=== PATIENT | male | born 1950 | race African-American/Black ===

== ENCOUNTER 2016-07-24 21:41 | Emergency (ER) | payer MEDICARE, OTHER ==
[~2016-07-24] VITALS: Ht 180.3 cm; Wt 79.4 kg
--- NOTE | 2016-07-24 22:03 | PHYS DOC ---
Past Medical History Past Medical History: CAD, CHF, Diabetes-Type II, Hypertension Past Surgical History: Angioplasty, Pacemaker Additional Past Surgical Histo: Left salivary gland removal Alcohol Use: None Drug Use: None Adult General Chief Complaint Chief Complaint: ALLERGIC REACTION HPI HPI Patient is a 65 year old male who presents with right submandibular swelling. Patient reports approximately 45 minutes prior to arrival he noticed some swelling. There is no pain. No difficulty breathing. No clear inciting event. Patient reports he had a similar thing happened 15 years ago on the other side that was due to a blocked salivary gland. No other acute complaints. Review of Systems Review of Systems Constitutional: Denies fever or chills Eyes: Denies change in visual acuity or eye pain HENT: R submandibular swelling Respiratory: Denies cough or shortness of breath Cardiovascular: Denies chest pain GI: Denies abdominal pain, nausea, vomiting, bloody stools or diarrhea : Denies dysuria or hematuria Musculoskeletal: Denies back pain or joint pain Integument: Denies rash or skin lesions Neurologic: Denies headache, focal weakness or sensory changes Current Medications Current Medications Current Medications Medications (Trade) Dose Ordered Sig/Han Start Time Stop Time Status Last Admin Dose Admin Info (Do NOT chart on this entry -- for MONITORING) 1 each PRN DAILY PRN 07/24/16 23:30 07/25/16 00:24 DC Iohexol (Omnipaque 300 Mg/ml) 70 ml 1X ONCE 07/24/16 23:15 07/24/16 23:26 DC 07/24/16 23:21 70 ML Allergies Allergies Allergies Coded Allergies Type Severity Reaction Last Updated Verified aspirin Allergy Unknown 07/24/16 Yes Physical Exam Physical Exam Constitutional: Well developed, well nourished, no acute distress, non-toxic appearance HENT: Normocephalic, atraumatic, bilateral external ears normal; oropharynx clear without erythema or exudate, airway widely patent; R submandibular swelling without TTP; floor of mouth soft; no salivary duct stone appreciated Eyes: EOMI, conjunctiva normal, no discharge Neck: Normal range of motion, no stridor Cardiovascular: Heart rate normal, regular rhythm, no murmur Lungs & Thorax: Bilateral breath sounds clear to auscultation Abdomen: Bowel sounds normal, soft, non-distended, no TTP Skin: Warm, dry, no erythema, no rash Extremities: No obvious deformity, no edema Neurologic: Alert and oriented X 3, no gross deficits noted Current Patient Data Vital Signs Vital Signs Date Time Temp Pulse Resp B/P Pulse Ox O2 Delivery O2 Flow Rate FiO2 07/25/16 00:02 78 18 173/83 96 Room Air 07/24/16 21:45 97.6 97.6 Lab Values Laboratory Tests Test 07/24/16 22:10 Sodium Level 142mmol/L (136-145) Potassium Level 3.9mmol/L (3.5-5.1) Chloride Level 104mmol/L (98-107) Carbon Dioxide Level 30mmol/L (21-32) Anion Gap 8 (6-14) Blood Urea Nitrogen 13mg/dL (8-26) Creatinine 1.2mg/dL (0.7-1.3) Estimated GFR (Cockcroft-Gault) 73.8 Glucose Level 107mg/dL (70-99) H Calcium Level 9.7mg/dL (8.5-10.1) Laboratory Tests 07/24/16 22:10 EKG EKG [] Radiology/Procedures Radiology/Procedures CT soft tissue neck: IMPRESSION The large right submandibular salivary gland could be inflammatory or infectious. There is no mass or lymphadenopathy seen. Course & Med Decision Making Course & Med Decision Making Pertinent Labs and Imaging studies reviewed. (See chart for details) Patient is 65-year-old male presents with right submandibular swelling. Likely related to submandibular salivary gland. I do not appreciate salivary duct stone on my exam. CT soft tissue neck ordered to evaluate. Imaging results as above. Discussed results with patient, who feels that the swelling has started to go down. We will cover him with antibiotics for possible infection. I discussed the need to follow-up with ENT or dentistry. Will plan discharge home with prescription, instructions for follow-up, return precautions. Dragon Disclaimer Dragon Disclaimer This electronic medical record was generated, in whole or in part, using a voice recognition dictation system. Departure Departure Impression: Primary Impression: Salivary gland swelling Disposition: HOME, SELF-CARE Condition: STABLE Referrals: OMARI PAZ MD (PCP) Patient Instructions: Salivary Gland Infection, Salivary Stone Additional Instructions: Thank you for allowing us to provide care today in the Emergency Department. Take the provided medication as directed. Schedule a follow up appointment with an ENT. Call Dr. Garcia's office at on Wednesday morning to schedule an appointment. Let them know you are a [facility] resident when you call. Return promptly to the Emergency Department if you develop any new or concerning symptoms. Scripts Amoxicillin/Potassium Clav (Augmentin 500-125 Tablet)1 Each Tablet1 Tab PO BID # 14 TAB Prov:PEG HECK MD 07/25/16 PEG HECK MD Jul 24, 2016 22:02
[2016-07-24 22:32] LABS: CALCIUM 9.7 mg/dL (8.5-10.1); CREATININE 1.2 mg/dL (0.7-1.3); GFR 73.8; POTASSIUM 3.9 mmol/L (3.5-5.1)
[2016-07-24] MEDS ORDERED: IOHEXOL 300 MG/ML 75 ML VIAL IV ONE (23:15)
[2016-07-24] MEDS ORDERED: CONTRAST GIVEN MC PRN (23:30)
--- NOTE | 2016-07-24 23:50 | RAD ---
PROCEDURE CT neck with contrast HISTORY Right submandibular swelling TECHNIQUE Axial helical images were obtained of the neck after administration of 70 milliliters IV Omni 300 contrast and axial coronal sagittal reconstruction was performed. FINDINGS There is no prevertebral soft tissue swelling. The epiglottis appears normal. The right submandibular salivary gland is enlarged measuring 3.3 by 2.5 centimeters but is otherwise homogeneous. The fat soft tissue planes of the neck are preserved. The thyroid appears normal. IMPRESSION The large right submandibular salivary gland could be inflammatory or infectious. There is no mass or lymphadenopathy seen. Electronically signed by: Viraj Acuna MD (Jul 24, 2016 23:48:51)
[2016-07-25 00:02] VITALS: BP 173/83
[2016-07-25] MEDS ORDERED: AMOX1TAB58 PO (00:03)
== END 2016-07-25 00:15 | disposition home or self-care (01) ==
LOC: ER 21:41
DX: R59.9 Enlarged lymph nodes, unspecified (principal); I25.10 Atherosclerotic heart disease of native coronary artery without angina pectoris; I11.0 Hypertensive heart disease with heart failure; I50.9 Heart failure, unspecified; E11.9 Type 2 diabetes mellitus without complications; Z95.0 Presence of cardiac pacemaker; Z98.61 Coronary angioplasty status; Z88.6 Allergy status to analgesic agent
CPT/HCPCS: 36415; 70491; 80048; 99285; Q9967

== ENCOUNTER → 2018-06-10 | Day surgery (SDC) | payer OTHER ==
[~2018-06-10] MED LIST: AMOX1TAB58 PO; AMOX500C PO; APIX5TAB PO; CARV12.5 PO; DEXTROSE 50% 25 GM / 50ML DISP.SYRIN. IV ONE; FURO20TA3 PO; HYDROmorphone 2 MG/ML VIAL IV PRN; INSU100C4 SQ; INSU100I13 SQ; IV RINGERS,LACTATED 1000ML 1,000 ML IV SCH; LIDOCAINE 1% PF 2 ML VIAL. ID PRN; LISI-334 PO; METO25TA4 PO; MORPHINE SULFATE 2 MG/ML VIAL. IV PRN; NPH,100V5 SQ; ONDANSETRON PF 4 MG/2 ML VIAL. IV PRN; POTA10TA12 PO; PROCHLORPERAZINE 10 MG/2 ML VIAL. IV PRN; PROPOFOL 60 ML IV ONE; SPIR25TA5 PO; fentaNYL PF VIAL 100 MCG/2 ML VIAL IV PRN
[2018-06-10 08:54] VITALS: BP 140/68
--- NOTE | 2018-06-13 15:08 | PATHOLOGY ---
[facility] Accession Number: [id number] . 01 Material submitted: . ANTRAL BIOPSY . 01 Clinical history: . Anemia . 02 Diagnosis: Gastric biopsies, antrum: - Active chronic gastritis, moderate to marked, with focal intestinal metaplasia and with Helicobacter organisms identified. (JPM:payton; 06/13/2018) QMS/06/13/2018 . 02 Comment: Sections of the gastric antral biopsy show moderate to marked active chronic inflammation with focal intestinal metaplasia. A properly controlled immunoperoxidase stain for Helicobacter reveals focally prominent numbers of Helicobacter organisms. There is no evidence of malignancy. (JPM:payton; 06/13/2018) . Special stain performed: Immunoperoxidase stain for Helicobacter. . 02 Electronically signed: . Ze Aaron MD, Pathologist NPI- [id number] . 01 Gross description: . Received in formalin labeled "[place] III, Jacob, antral BX, rule out H. pylori," are 5 segments of campo soft tissue measuring 1.2 x 0.8 x 0.2 cm in aggregate dimensions and ranging from 0.3 to 0.4 cm in maximum dimension. The specimen is submitted entirely in cassette A1. (TSD; 06/10/2018) TOB/TOB . 02 Pathologist provided ICD-10: K29.50, B96.81 . 02 CPT . 031754, Z37045 Specimen Comment: A courtesy copy of this report has been sent to Specimen Comment: [phone], . Specimen Comment: Report sent to and Specimen Comment: A duplicate report has been generated due to demographic updates. Performed at: [address], [place], [place] [id number] MD Jesús Brownlee MD Phone: [phone] Performed at: [address] [id number] MD Ze Aaron MD Phone: [phone]
== END | disposition home or self-care (01) ==
LOC: SURG 06:47
PROVIDERS: ATTEND Internal Medicine Gastroenterology
DX: K64.0 First degree hemorrhoids (principal); K26.9 Duodenal ulcer, unspecified as acute or chronic, without hemorrhage or perforation; K29.50 Unspecified chronic gastritis without bleeding; K21.9 Gastro-esophageal reflux disease without esophagitis; D50.0 Iron deficiency anemia secondary to blood loss (chronic); E11.9 Type 2 diabetes mellitus without complications; Z82.49 Family history of ischemic heart disease and other diseases of the circulatory system; Z82.3 Family history of stroke; Z88.6 Allergy status to analgesic agent; Z88.8 Allergy status to other drugs, medicaments and biological substances; F17.210 Nicotine dependence, cigarettes, uncomplicated; Z79.899 Other long term (current) drug therapy; Z95.810 Presence of automatic (implantable) cardiac defibrillator; Z79.84 Long term (current) use of oral hypoglycemic drugs
CPT/HCPCS: 43239; 45378; 82962; 88305; 88342; J2704; J7042